=== PATIENT | male | born 1990 | race Caucasian/White ===

== ENCOUNTER 2017-11-30 18:25 | Emergency (ER) | payer MEDICAID ==
[2017-11-30] MEDS ORDERED: SODIUM CHLORIDE 0.9% 1000ML 1,000 ML IVS ONE (18:38)
[2017-11-30] MEDS ORDERED: OSELTAMIVIR 75 MG CAP PO ONE (18:42)
--- NOTE | 2017-11-30 19:17 | CT ---
PROCEDURE: Head HISTORY: ams Indication: Same as above Comparison: None Technique: CT of the head was done without intravenous contrast was done in the orthogonal planes. This exam was performed according to our departmental dose-optimization program, which includes automated exposure control, adjustment of the mA and/or KV according to the patient's size and/or use of iterative reconstruction technique. FINDINGS: There is no intracranial hemorrhage, midline shift mass effect or acute focal infarct. If clinical concern exists regarding an acute ischemic/vascular pathology being responsible for patient's symptomatology, an MRI of the brain is more sensitive than the current study, in ruling out such a possibility. There is good bowman/white matter differentiation. There is no hydrocephalus. A benign asymmetry in the size of the two lateral ventricles is noted The mastoid air cells are unremarkable . The paranasal sinuses are unremarkable . There is no visualization of acute fractures involving the calvarium or the skull base. IMPRESSION: There is no acute intracranial abnormality. Electronically signed by: Jean Redman MD 11/30/2017 7:15 PM CDT Workstation: [id number]
--- NOTE | 2017-11-30 19:18 | RAD ---
PROCEDURE: XR CHEST 1 VIEW HISTORY: ams COMPARISON: None TECHNIQUE: Single projection of the chest was done. FINDINGS: There is presence of mild bibasilar infiltrate/atelectasis . There are no pneumothoraces or pleural effusions. The pulmonary vascularity is normal. The cardiomediastinal silhouette is unremarkable for patient's age and sex. IMPRESSION: There is presence of mild bibasilar infiltrate/atelectasis . Electronically signed by: Jean Redman MD 11/30/2017 7:15 PM CDT Workstation: [id number]
[2017-11-30] MEDS ORDERED: FLUMAZENIL 0.1 MG/ML VIAL IV ONE (20:53)
--- NOTE | 2017-11-30 23:15 | ED.PDOC ---
History of Present Illness - General Chief Complaint: Neuro Symptoms/Deficits Stated Complaint: Altered mental status Time Seen by Provider: 11/30/17 18:28 Source: patient, EMS notes reviewed, family, police, EMS Exam Limitations: clinical condition - History of Present Illness Initial Comments: The patient is a 27-year-old male presenting to the emergency room secondary to altered mental status. Apparently the patient was found in his car at a pharmacy parking lot altered. He thought he was in a different town. He was very drowsy. By the time he arrived here he was extremely drowsy and making no sense whatsoever. vital signs remained stable, however his GCS did drop to 8 at 1 point. it was at this time that he did receive a dose of flumazenil, after which he was talking coherently. There was some initial concern for the possibility of encephalitis and the patient was given a dose of Tamiflu here. Shortly after he was dosed, information was obtained from his family that he had a psychiatric appointment today and he frequently fills and takes his full prescription of Xanax when he gets it on those days and ends up like this. The patient did receive a dose of flumazenil here, as above, and did respond appropriately and abruptly, consistent with a benzodiazepine overdose. The patient has been monitored for approximately 5 hours. The patient did test positive for marijuana as well. No evidence of any other ingestion. It does not appear that he was trying to harm himself. 40 minutes of critical care spent in management of the overdose and in acquiring information on this obtunded patient to determine appropriate diagnosis and plan of treatment. Timing/Duration: unsure Severity: severe Improving Factors: nothing Worsening Factors: nothing Allergies/Adverse Reactions: Allergies UNOBTAINABLE Allergy (Verified 11/30/17 18:37) Home Medications: Ambulatory Orders Unobtainable [Unobtainable] 11/30/17 Review of Systems - Review of Systems Review of Systems: 11/30/17 23:15 patient is unable to give a review of systems due to condition upon arrival. Past Medical History (General) - Patient Medical History Hx Stroke: No Hx Congestive Heart Failure: No Hx Diabetes: No - Vaccination History Hx Influenza Vaccination: No Hx Pneumococcal Vaccination: No - Social History Hx Tobacco Use: Yes Family Medical History - Family History Father Family History: Unknown Living Status: Unknown Physical Exam - Physical Exam General Appearance: Lethargic - and very confused. He is well-dressed.he was initially arousable to voice but later became unarousable to sternal rub Eye Exam: bilateral other - pupupils are 2 mm and minimally reactive Ears, Nose, Throat: hearing grossly normal, other - posterior pharynx is dry Neck: non-tender, full range of motion, supple Respiratory: lungs clear, normal breath sounds, no respiratory distress, no accessory muscle use Cardiovascular/Chest: normal peripheral pulses, no edema, tachycardia - mild sinus Peripheral Pulses: radial,right: 2+, radial,left: 2+, dorsalis pedis,right: 2+, dorsalis pedis,left: 2+ Gastrointestinal/Abdominal: non tender, soft Rectal Exam: deferred Back Exam: normal inspection, no CVA tenderness, no vertebral tenderness Extremity: normal range of motion, non-tender, normal inspection, no pedal edema , normal capillary refill Neurologic: community relations rep II-XII nml as tested, no motor/sensory deficits, disoriented x 3 , other - drowsy DTR: 2+: Patellar, left, Patellar, right Skin Exam: normal color Comments: Vital Signs - 24 hr 11/30/17 11/30/17 11/30/17 18:26 19:49 20:11 Temperature 100.1 F H Pulse Rate [ 117 H 88 88 Right Radial] Respiratory 12 12 13 Rate Blood Pressure 129/88 108/56 121/67 [Right Arm] O2 Sat by Pulse 95 93 L 94 L Oximetry 11/30/17 11/30/17 11/30/17 21:15 21:30 22:40 Temperature Pulse Rate [ 78 90 90 Right Radial] Respiratory 14 16 16 Rate Blood Pressure 120/71 145/81 118/70 [Right Arm] O2 Sat by Pulse 93 L 96 95 Oximetry Progress - Progress Progress: 11/30/17 23:19 The patient is a 27-year-old male presenting after what appears to be an accidental overdose on his benzodiazepines and probably marijuana. The patient apparently has a history of abusing his prescription anxiety medications when he gets them filled. He has apparently had other episodes like this before. It does not appear that he was actually trying to harm himself. He currently denies suicidal or homicidal ideation. He in fact denies taking any more medications than he is supposed to. His urine drug screen is turned up positive for benzodiazepines and marijuana. The patient has been monitored for an extended period of time and did actually receive 1 dose of flumazenil several hours ago, with an appropriate satisfactory response. He is easily arousable and alert and oriented. The patient will be taken into custody by police for public intoxication.vital signs have otherwise remained stable. The patient did have to have an in and out catheterization secondary to urinary retention which is also consistent with a benzodiazepine overdose. - Results/Orders Results/Orders: Laboratory Results - last 24 hr 11/30/17 11/30/17 11/30/17 18:40 18:45 18:45 WBC 11.0 H RBC 4.98 Hgb 14.8 Hct 42.0 MCV 84.3 MCH 29.7 MCHC 35.2 RDW 13.4 Plt Count 202 MPV 7.5 Absolute Neuts (auto) 6.20 Absolute Lymphs (auto) 3.60 H Absolute Monos (auto) 0.90 H Absolute Eos (auto) 0.20 Absolute Basos (auto) 0.00 Neutrophils % 56.4 Lymphocytes % 33.1 Monocytes % 8.6 Eosinophils % 1.7 Basophils % 0.2 Sodium 135 Potassium 3.3 L Chloride 100 L Carbon Dioxide 27 Anion Gap 11.3 L BUN 13 Creatinine 0.83 BUN/Creatinine Ratio 15.7 Random Glucose 138 H Serum Osmolality 272.4 L Lactic Acid Calcium 9.2 Total Bilirubin 0.6 AST 30 ALT 34 Alkaline Phosphatase 53 Creatine Kinase 104 CK-MB (CK-2) 1.2 CK-MB (CK-2) % Not Reportable Troponin I < 0.02 B-Natriuretic Peptide 6.3 Serum Total Protein 7.9 Albumin 4.7 Globulin 3.2 Albumin/Globulin Ratio 1.5 Urine Color Urine Appearance Urine pH Ur Specific [place] Urine Protein Urine Glucose (UA) Urine Ketones Urine Blood Urine Nitrite Urine Bilirubin Urine Urobilinogen Ur Leukocyte Esterase Urine RBC Urine WBC Ur Epithelial Cells Urine Bacteria Salicylates Urine Opiates Screen Acetaminophen Urine Barbiturates Ur Phencyclidine Scrn U Amphetamin/Meth Scrn U Benzodiazepines Scrn U Cocaine Metab Screen U Cannabinoids Screen Group A Strep DNA Negative 11/30/17 11/30/17 11/30/17 18:45 19:15 22:10 WBC RBC Hgb Hct MCV MCH MCHC RDW Plt Count MPV Absolute Neuts (auto) Absolute Lymphs (auto) Absolute Monos (auto) Absolute Eos (auto) Absolute Basos (auto) Neutrophils % Lymphocytes % Monocytes % Eosinophils % Basophils % Sodium Potassium Chloride Carbon Dioxide Anion Gap BUN Creatinine BUN/Creatinine Ratio Random Glucose Serum Osmolality Lactic Acid 1.1 Calcium Total Bilirubin AST ALT Alkaline Phosphatase Creatine Kinase CK-MB (CK-2) CK-MB (CK-2) % Troponin I B-Natriuretic Peptide Serum Total Protein Albumin Globulin Albumin/Globulin Ratio Urine Color Urine Appearance Urine pH Ur Specific [place] Urine Protein Urine Glucose (UA) Urine Ketones Urine Blood Urine Nitrite Urine Bilirubin Urine Urobilinogen Ur Leukocyte Esterase Urine RBC Urine WBC Ur Epithelial Cells Urine Bacteria Salicylates < 4.0 Urine Opiates Screen Negative Acetaminophen < 10.0 L Urine Barbiturates Negative Ur Phencyclidine Scrn Negative U Amphetamin/Meth Scrn Negative U Benzodiazepines Scrn Positive H U Cocaine Metab Screen Negative U Cannabinoids Screen Positive H Group A Strep DNA 11/30/17 22:10 WBC RBC Hgb Hct MCV MCH MCHC RDW Plt Count MPV Absolute Neuts (auto) Absolute Lymphs (auto) Absolute Monos (auto) Absolute Eos (auto) Absolute Basos (auto) Neutrophils % Lymphocytes % Monocytes % Eosinophils % Basophils % Sodium Potassium Chloride Carbon Dioxide Anion Gap BUN Creatinine BUN/Creatinine Ratio Random Glucose Serum Osmolality Lactic Acid Calcium Total Bilirubin AST ALT Alkaline Phosphatase Creatine Kinase CK-MB (CK-2) CK-MB (CK-2) % Troponin I B-Natriuretic Peptide Serum Total Protein Albumin Globulin Albumin/Globulin Ratio Urine Color Yellow Urine Appearance Clear Urine pH 6.0 Ur Specific [place] 1.015 Urine Protein Negative Urine Glucose (UA) Negative Urine Ketones Negative Urine Blood Negative Urine Nitrite Negative Urine Bilirubin Negative Urine Urobilinogen 0.2 Ur Leukocyte Esterase Negative Urine RBC 0-1 Urine WBC 1-3 Ur Epithelial Cells 0 Urine Bacteria Rare Salicylates Urine Opiates Screen Acetaminophen Urine Barbiturates Ur Phencyclidine Scrn U Amphetamin/Meth Scrn U Benzodiazepines Scrn U Cocaine Metab Screen U Cannabinoids Screen Group A Strep DNA Departure - Departure Clinical Impression: Urinary retention Accidental overdose Qualifiers: Encounter type: initial encounter Qualified Code(s): T50.901A - Poisoning by unspecified drugs, medicaments and biological substances, accidental ( unintentional), initial encounter Disposition: Discharge to Home or Self Care Condition: Fair Departure Forms: ED Discharge - Pt. Copy, Patient Portal Self Enrollment Instructions: DI for Drug Overdose in Adults Diet: regular diet Activity: increase activity as tolerated Home Medications: Ambulatory Orders Unobtainable [Unobtainable] 11/30/17 Additional Instructions: The patient appears to have accidentally overdosed while abusing his prescription anxiety medications. The patient has been stabilized. He has received 1 dose of flumazenil and a liter of IV fluids. He has been monitored for an extended period of time and is vital signs and neurological status appears to have stabilized. Repeat lab work is reassuring. Additional prescriptions of benzodiazepines are not recommended for this patient.
[2017-11-30 23:49] VITALS: TEMP 98.2; O2SAT 97
[2017-12-01 01:29] VITALS: BP 106/66
== END 2017-12-01 01:28 | disposition home or self-care (01) ==
LOC: ER 18:25
DX: T50.901A Poisoning by unspecified drugs, medicaments and biological substances, accidental (unintentional), initial encounter (principal); R33.9 Retention of urine, unspecified; Y92.481 Parking lot as the place of occurrence of the external cause; Z79.899 Other long term (current) drug therapy
CPT/HCPCS: 36415; 70450; 71045; 80053; 80307; 80329; 81001; 82550; 82553; 83605; 83880; 84484; 85025; 87040; 87070; 87651; J7030